=== PATIENT | male | born 1985 ===

== ENCOUNTER 2016-08-09 06:47 | Day surgery (SDC) | payer OTHER ==
--- NOTE | 2016-08-08 21:20 | History and Physical Report ---
History of Present Illness Date of examination: 08/08/16 Date of admission: 08/09/16 Chief complaint: Sustained injury to her left knee with painful limitation of movement, difficulty walking. Date of injury April 2016. Evaluation the office and MR scan confirmed a torn medial meniscus, being admitted for arthroscopy, meniscectomy. Past History Past Medical History: No medical history Medications and Allergies Allergies Allergy/AdvReac Type Severity Reaction Status Date / Time No Known Allergies Allergy Unverified 07/31/16 11:16 Home Medications Medication Instructions Recorded Confirmed Last Taken Type No Known Home Medications [No 07/31/16 07/31/16 Unknown History Reported Home Medications] Active Meds: Active Medications Cefazolin Sodium (Ancef/Sterile Water 2 Gm/20 Ml) 2 gm in 20 mls @ 80 mls/hr IV PREOP NR PRN Reason: Protocol Stop: 08/09/16 23:59 Review of Systems All systems: negative Exam - Constitutional General appearance: Present: no acute distress, well-nourished - EENT Eyes: Present: PERRL ENT: hearing intact, clear oral mucosa - Neck Neck: Present: supple, normal ROM - Respiratory Respiratory effort: normal Respiratory: bilateral: CTA - Cardiovascular Heart Sounds: Present: S1 & S2. Absent: rub, click - Extremities Extremities: abnormal (Left knee with painful limitation of movement, tenderness posterior medial joint line with positive Keyla test. Drawer sign , Lockman test are negative. No effusion. Quad strength grade 5. Collateral ligament stable.) Peripheral Pulses: within normal limits - Abdominal General gastrointestinal: Present: soft, non-tender, non-distended, normal bowel sounds Male genitourinary: Present: normal - Integumentary Integumentary: Present: clear, warm, dry - Musculoskeletal Musculoskeletal: gait normal, strength equal bilaterally - Psychiatric Psychiatric: appropriate mood/affect, intact judgment & insight - Neurologic Neurologic: CNII-XII intact, moves all extremities Assessment and Plan - Patient Problems (1) Torn medial meniscus Status: Acute Qualifiers: Tear current or old: current Encounter type: initial encounter Meniscus tear of knee type: complex Laterality: left Qualified Code(s): S83.232A - Complex tear of medial meniscus, current injury, left knee, initial encounter Plan to address problem: Arthroscopy, partial meniscectomy medial.
[~2016-08-09 06:47] MED LIST: ADRENALIN IV ONE; ANCEF/STERILE WATER 2 GM/20 ML 2 GM/20 ML SYRINGE IV NR; MARCAINE 0.5% IJ ONE; NACL 0.9% 1000 ML 1,000 ML IV SCH; PEPCID PO NR; VERSED IV NR
[2016-08-09] MEDS ORDERED: ZOFRAN ONE (07:11)
[2016-08-09] MEDS ORDERED: DECADRON ONE (07:11)
[2016-08-09] MEDS ORDERED: DIPRIVAN 10 MG/ML IV ONE (07:11)
[2016-08-09] MEDS ORDERED: DILAUDID ONE (07:11)
--- NOTE | 2016-08-09 07:11 | Anesthesia Day of Surgery ---
Anesthesia Day of Surgery - Day of Surgery Patient Examined: Yes Patient H&P Reviewed: Yes Patient is NPO: Yes
--- NOTE | 2016-08-09 07:11 | Anesthesia Consultation ---
Anesthesia Consult and Med Hx Date of service: 08/09/16 - Airway Anesthetic Teeth Evaluation: Good ROM Head & Neck: Adequate Mental/Hyoid Distance: Adequate Mallampati Class: Class I Intubation Access Assessment: Good - Pulmonary Exam CTA: Yes - Cardiac Exam Cardiac Exam: RRR - Pre-Operative Health Status ASA Pre-Surgery Classification: ASA1 Proposed Anesthetic Plan: General - Pulmonary Hx Smoking: No Hx Sleep Apnea: No - Central Nervous System Hx Psychiatric Problems: No - Other Systems Hx Alcohol Use: Yes (SOCIALLY) Hx Substance Use: No Hx Cancer: No - Additional Comments Anesthesia Medical History Comments: Healthy. No previous anesthesia complications.
[2016-08-09] MEDS ORDERED: VERSED IV PRN (07:12)
[2016-08-09] MEDS ORDERED: XYLOCAINE MPF 2% ONE (07:12)
[2016-08-09] MEDS ORDERED: MARCAINE 0.5% 30 ML INFILTRATI ONE (07:32)
[2016-08-09] MEDS ORDERED: ADRENALIN ONE (07:33)
[2016-08-09 08:29] LABS: Basophils % (Auto) 0.8 % (0.0-1.8); Eosinophils % (Auto) 2.2 % (0.0-4.3); Hematocrit 40.9 % (35.5-45.6); Mean Corpuscular HGB Conc 34 % (32-34); Mean Corpuscular Hemoglobin 32 pg (28-32); Mean Corpuscular Volume 93 fl (84-94); Platelet Count 144 K/mm3 (140-440); Red Blood Count 4.42 M/mm3 (3.65-5.03); Red Cell Distribution Width 13.3 % (13.2-15.2); White Blood Count 8.5 K/mm3 (4.5-11.0)
[2016-08-09] MEDS ORDERED: ADRENALIN IV ONE (09:03)
--- NOTE | 2016-08-09 09:27 | Discharge Summary ---
Providers - Providers Date of discharge: 08/09/16 Attending physician: ERASMO SANTIAGO Primary care physician: [employer] Hospitalization Reason for admission: Torn med meniscus Condition: Stable Procedures: No complications Hospital course: uneventful Disposition: DISCHARGED TO HOME OR SELFCARE - Discharge Diagnoses (1) Torn medial meniscus Status: Acute Qualifiers: Tear current or old: current Encounter type: initial encounter Meniscus tear of knee type: complex Laterality: left Qualified Code(s): S83.232A - Complex tear of medial meniscus, current injury, left knee, initial encounter Core Measure Documentation - Palliative Care Palliative Care/ Comfort Measures: Not Applicable - Core Measures Any of the following diagnoses?: none Exam - Constitutional Vitals: Temp Pulse Resp BP Pulse Ox 97.9 F 70 16 132/86 97 08/09/16 07:15 08/09/16 07:15 08/09/16 07:15 08/09/16 07:15 08/09/16 07:15 Plan Activity: up only with assistance, fall precautions Weight Bearing Status: Weight Bear as Tolerated Diet: regular Wound: per your surgeon's advice Durable Medical Equipment Needed Upon Discharge: Crutches Follow up with: ARABELLA MONTIEL MD [Primary Care Provider] - 7 Days ERASMO SANTIAGO MD [Staff Physician] - 7 Days
[2016-08-09] MEDS ORDERED: MARCAINE 0.5% IJ ONE (09:28)
--- NOTE | 2016-08-09 09:57 | Post Anesthesia Evaluation ---
- Post Anesthesia Evaluation Patient Participated: Yes Airway Patent: Yes Stable Respiratory Function: Yes Nausea/Vomiting: No Temp > 96.8F: Yes Pain Manageable: Yes Adequeate Hydration: Yes Anesthesia Complications: No Block Receding Appropriately: Not Applicable Patient on Ventilator: No
[2016-08-09 10:50] VITALS: BP 126/83
--- NOTE | 2016-08-09 11:32 | Operative Report ---
PREOPERATIVE DIAGNOSIS: Complex tear, posterior horn medial meniscus, left knee. POSTOPERATIVE DIAGNOSIS: Complex tear, posterior horn medial meniscus, left knee. OPERATIVE PROCEDURE: Arthroscopy, arthroscopic partial medial meniscectomy. SURGEON: Miriam Cho MD [employer] SUPERVISOR: Kayley Palma CSA. ANESTHESIA: General. BLOOD LOSS: Minimal. TOURNIQUET TIME: Approximately 30 minutes. PROCEDURE IN DETAIL: The patient was taken to surgery suite, satisfactory analgesia obtained with general anesthetics. Left lower limb prepped in the routine fashion with ChloraPrep, satisfactorily draped. The tourniquet was inflated to 300 mmHg pressure following exsanguination. The correct patient, procedure, and surgical sites are confirmed. The standard anterior, medial, and lateral portals were established and diagnostic arthroscopy was carried out. ARTHROSCOPY FINDINGS: Medial compartment, complex tear posterior horn of medial meniscus, middle anterior third of the meniscus appeared intact. Lateral meniscus within normal limits. Intercondylar area, ACL and PCL visualized, normal. Lackman carried out. ACL appeared stable. Medial and lateral gutter, no acute abdominal findings, no loose bodies. Patellofemoral joint, no abnormal findings. Patellar tracking central. The diagnostic arthroscopy completed. Using the full-radius resector, the posterior horn of the medial meniscus tear was debrided. Following this, the margins were again probed using a meniscal hook and the meniscus appeared stable. The knee joint was irrigated to remove any debris. Scope and cannulas were withdrawn. Portals were closed with 3-0 nylon sutures, infiltrated with 0.25% Marcaine plain for postop pain control. He is transferred to recovery room to be discharged when discharge criteria are met. HOMEGOING INSTRUCTIONS: Elevation, localized packs, analgesics, crutch, ambulation and weightbearing as tolerated. Quad and hamstring range of motion exercises. Follow up in 5-7 days. JOB# [id number] LUIS M/ISABELLE BABCOCK
== END 2016-08-09 11:10 | disposition home or self-care (01) ==
LOC: OR 06:47
PROVIDERS: ATTEND Orthopaedic Surgery
DX: S83.232A Complex tear of medial meniscus, current injury, left knee, initial encounter (principal); X58.XXXA Exposure to other specified factors, initial encounter; Z72.89 Other problems related to lifestyle
CPT/HCPCS: 29881; 36415; 85025; J0171; J0690; J1100; J1170; J2250; J2405; J2704; J7030